=== PATIENT | male | born 1965 | race Caucasian/White ===

== ENCOUNTER → 2018-05-04 16:05 | Outpatient (CLI) | payer OTHER, SELFPAY ==
[2018-05-07 06:08] LABS: QNTFERON TB Mitogen Value > 10.00 IU/mL (.); QNTFERON TB Nil Value 0.06 IU/mL (.); QNTFERON TB1+ Ag Value 0.06 IU/mL (.); QNTFERON TB2+ Ag Value 0.05 IU/mL (.)
[2018-05-07 12:36] LABS: QNTIFERON TB Positive Criteria Negative (Negative)
--- OUTSIDE RECORDS SUMMARY | 2018-06-20 23:33 | XMS RPT_ITS ---
:1965 Author Organization OHIP Care Team Providers Name Role Phone FRED TURNER MD Attending Unavailable FRED TURNER MD Primary Care Unavailable FRED TURNER MD Attending Unavailable FRED TURNER MD Primary Care Unavailable FRED TURNER MD Attending Unavailable FRED TURNER MD Primary Care Unavailable FRED TURNER MD Attending Unavailable FRED TURNER MD Primary Care Unavailable Chel Villalta Attending Unavailable Chel Villalta Referring Unavailable ITZ DE LEON Primary Care Unavailable PROBLEMS PROBLEMS DATE TYPE CONDITION / CODE ATTENDING STATUS SOURCE 04/01/2018 Admitting Other specified FRED TURNER MD [facility] Diagnosis abnormal findings of [facility] blood chemistry / Repository R79.89(ICD-10) 09/24/2017 Admitting Mixed hyperlipidemia FRED TURNER MD Active [facility] Diagnosis / E78.2(ICD-10) K [facility] Repository 06/26/2017 Admitting Abnormal results of FRED TURNER MD Active [facility] Diagnosis liver function [facility] studies / Repository R94.5(ICD-10) 06/26/2017 Admitting Encounter for FRED TURNER MD Active [facility] Diagnosis screening for [facility] malignant neoplasm Repository of prostate / Z12.5(ICD-10) PROCEDURES PROCEDURES No Procedure Records FoundRESULTS RESULTS CBC Collected: 05/11/2018 Status: F Source: [facility] 8:59 AM [facility] [place] REPOSITORY TYPE CODE TESTS RESULT OUT OF REFERENCE UNITS RANGE LAB WBC(LOINC) 4.50-10.80 10 3/mcL WBC 6.80 LAB RBCCT(LOINC 4.50-6.00 10 6/mcL ) RBC 4.53 LAB HGB(LOINC) 13.0-17.5 G/dL Hgb 15.3 LAB HCT(LOINC) 40.0-52.0 % Hct 45.2 LAB MCV(LOINC) 81.0-100.0 fL MCV 99.7 LAB MCH(LOINC) 27.0-33.0 pg High MCH 33.8 LAB MCHC(LOINC) 32.0-36.0 G/dL MCHC 33.9 LAB RDW(LOINC) 11.5-15.5 % RDW 13.3 LAB PLT(LOINC) 150-450 10 3/mcL Platelet 180 LAB MPV(LOINC) 6.4-10.5 fL MPV 8.9 Performed By: #### CBC, ADIFF, ANEU, TSH, T3, T4, TUP, A1C, FTESTO #### [place] [address] .AUTO DIFF Collected: 05/11/2018 Status: F Source: [facility] 8:59 AM [facility] [place] REPOSITORY TYPE CODE TESTS RESULT OUT OF REFERENCE UNITS RANGE LAB AZEB(LOINC) 50.0-75.0 % Neutrophil % 52.3 LAB LYM(LOINC) 20.0-40.0 % Lymphocyte % 35.6 LAB MON(LOINC) 2.0-13.0 % Monocyte % 8.0 LAB EO(LOINC) 0.0-6.0 % Eosinophil % 2.9 LAB BAS(LOINC) 0.0-2.5 % Basophil % 1.2 LAB ABLYM(LOIN 0.90-4.32 10 3/mcL C) Lymphocyte, 2.40 Absolute LAB WILL(LOINC 0.09-1.40 10 3/mcL ) Monocyte, 0.50 Absolute LAB AEOS(LOINC 0.00-0.65 10 3/mcL ) Eosinophil, 0.20 Absolute LAB ABAS(LOINC 0.00-0.27 10 3/mcL ) Basophil, 0.10 Absolute Performed By: #### CBC, ADIFF, ANEU, TSH, T3, T4, TUP, A1C, FTESTO #### [place] [id number] .NEUABS Collected: 05/11/2018 Status: F Source: [facility] 8:59 AM [facility] [place] REPOSITORY TYPE CODE TESTS RESULT OUT OF REFERENCE UNITS RANGE LAB ANEU(LOINC) 2.25-8.10 10 3/mcL Neutrophil, 3.50 Absolute Performed By: #### CBC, ADIFF, ANEU, TSH, T3, T4, TUP, A1C, FTESTO #### [place] [address] TSH Collected: 05/11/2018 Status: F Source: [facility] 8:59 AM [facility] [place] REPOSITORY TYPE CODE TESTS RESULT OUT OF RANGE REFERENCE UNITS LAB TSH(LOINC) 0.360-3.740 mcIU/mL TSH 3.620 Result Comment: Please note as of 12/06/16 new pediatric reference intervals were added for this test. Performed By: #### CBC, ADIFF, ANEU, TSH, T3, T4, TUP, A1C, FTESTO #### [place] [address] T3 Collected: 05/11/2018 Status: F Source: [facility] 8:59 AM [facility] [place] REPOSITORY TYPE CODE TESTS RESULT OUT OF RANGE REFERENCE UNITS LAB T3(LOINC) 60-181 ng/dL Total T3 106 Result Comment: Please note ? as of 12/06/16 new pediatric reference intervals were added for this test. Performed By: #### CBC, ADIFF, ANEU, TSH, T3, T4, TUP, A1C, FTESTO #### [place] [address] T4 Collected: 05/11/2018 Status: F Source: [facility] 8:59 AM [facility] [place] REPOSITORY TYPE CODE TESTS RESULT OUT OF RANGE REFERENCE UNITS LAB T4(LOINC) 4.7-11.4 mcg/dL T4 8.5 Result Comment: Please note as of 12/06/16 new pediatric reference intervals were added for this test. Performed By: #### CBC, ADIFF, ANEU, TSH, T3, T4, TUP, A1C, FTESTO #### [place] [address] TUP Collected: 05/11/2018 Status: F Source: [facility] 8:59 AM [facility] [place] REPOSITORY TYPE CODE TESTS RESULT OUT OF REFERENCE UNITS RANGE LAB TUP(LOINC) 0.76-1.23 ratio T Uptake 0.90 Performed By: #### CBC, ADIFF, ANEU, TSH, T3, T4, TUP, A1C, FTESTO #### [place] [address] A1C Collected: 05/11/2018 Status: F [facility] 8:59 AM [facility] [place] REPOSITORY TYPE CODE TESTS RESULT OUT OF RANGE REFERENCE UNITS LAB A1C(LOINC) 4.0-6.0 % Hgb A1c 6.0 Performed By: #### CBC, ADIFF, ANEU, TSH, T3, T4, TUP, A1C, FTESTO #### [address] [address] FTESTO Collected: 05/11/2018 Status: F Source: [facility] 8:59 AM [facility] [place] REPOSITORY TYPE CODE TESTS RESULT OUT OF REFERENCE UNITS RANGE LAB TESTO(LOIN 193-824 ng/dL C) Testosterone 476 Result Comment: Disregard reference range. Test performed by: [facility], [place], [place] Reference value is 240 to 950 ng/dL. Testing performed by Liquid Chromat[facility] [employer]rom[facility]. Performed By: [place] [address] Blister Pack Operator: Pascual Velasco#: [id number] Phone#: LAB FREE(LOINC) Free Testosterone Percent free % calculation not provided by [employer]. Result Comment: Performed By: [place] [address] Blister Pack Operator: Charlene Hargrove M.D. CLIA#: [id number] Phone#: LAB FTES(LOINC) 41.7-180.2 pg/mL Free Low Testosterone 6.2 Result Comment: Disregard reference range. Test performed by: [facility], [place], [place] Reference value is 4.06 to 15.6 ng/dL. Testing performed by [facility]. Performed By: [facility] [place] [address] Blister Pack Operator: Charlene Hargrove M.D. CLIA#: [id number] Phone#: Performed By: #### CBC, ADIFF, ANEU, TSH, T3, T4, TUP, A1C, FTESTO #### [place] [address] QUANTIFERON TB-GOLD+ Collected: 05/04/2018 Status: F Source: [facility] 4:19 PM [facility] REPOSITORY TYPE CODE TESTS RESULT OUT OF RANGE REFERENCE UNITS LAB L3400.8025 . Normal QFT TB Comment GOLD Result Comment: The QuantiFERON-TB Gold Plus result is determined by subtracting the Nil value from either TB antigen (Ag) tube. The mitogen tube serves as a control for the test. LAB L3400.8035 . IU/mL Normal QFT TB1+ AG 0.06 [facility] LAB L3400.8045 . IU/mL Normal QFT TB2+ AG 0.05 [facility] LAB L3400.8055 . IU/mL Normal QFT NIL VALUE 0.06 LAB L3400.8065 . IU/mL Normal QFT MITOGEN > 10.00 [facility] LAB L3400.8075 Negative Normal QFT TB POS Negative CRIT Result Comment: The specimen received for QuantiFERON testing was incubated by the ordering institution. Specific procedures outlined in our Directory of Services and in the package insert for the QuantiFERON Gold (In Tube) test must be followed to enable for proper stimulation of cells for the production of interferon gamma. Performed at: [address] [id number] Blister Pack Operator: German Lopez PhD, Phone: [phone] Performed By: #### L3400.8000 #### [facility] (refer to report for specific site) refer to report for address and phone number CMP Collected: 04/01/2018 Status: F Source: [facility] 7:32 AM [facility] [place] REPOSITORY TYPE CODE TESTS RESULT OUT OF REFERENCE UNITS RANGE LAB GLU(LOINC) 70-110 mg/dL Glucose High Level 132 LAB NA(LOINC) 136-145 mEq/L Sodium Level 140 LAB K(LOINC) 3.5-5.0 mEq/L Potassium Level 4.2 LAB CL(LOINC) 98-110 mEq/L Chloride 106 LAB CO2(LOINC) 22-32 mEq/L CO2 26 LAB EBAL(LOINC 4.0-15.0 mEq/L ) Electrolyte Balance 8.0 LAB BUN(LOINC) 8.0-22.0 mg/dL BUN 11.0 LAB CRE(LOINC) 0.60-1.40 mg/dL Creatinine Lvl (s) 0.75 LAB BC(LOINC) 10.0-22.0 ratio BUN/Creatinine 14.7 Ratio LAB CA(LOINC) 8.4-10.1 mg/dL Calcium Lvl 9.2 LAB PROT(LOINC 6.0-8.5 G/dL ) Total Protein 7.9 LAB ALB(LOINC) 3.2-4.8 G/dL Albumin Level 4.1 LAB GLB(LOINC) 1.5-3.8 G/dL Globulin 3.8 LAB AG(LOINC) 0.9-1.6 ratio A/G Ratio 1.1 LAB BILT(LOINC 0.2-1.2 mg/dL ) Bili Total 0.8 LAB AP(LOINC) 38-126 U/L Alk Phos 104 LAB AST(LOINC) 8-34 U/L AST/SGOT High 74 LAB ALT(LOINC) 12-55 U/L ALT/SGPT High 80 Performed By: #### CMP, GFR, LIPID #### [place] [address] .GFR Collected: 04/01/2018 Status: F Source: [facility] 7:32 AM [facility] [place] REPOSITORY TYPE CODE TESTS RESULT OUT OF REFERENCE UNITS RANGE LAB GFRAA(LOINC ml/min/1.73 ) sqm GFR >60 Marshallese Result Comment: GFR Population mean for , Non- Americans Ages 20-29 = 116 mL/min/1.73 sq.m. Ages 30-39 = 107 mL/min/1.73 sq.m. Ages 40-49 = 99 mL/min/1.73 sq.m. Ages 50-59 = 93 mL/min/1.73 sq.m. Ages 60-69 = 85 mL/min/1.73 sq.m. Ages 70+ = 75 mL/min/1.73 sq.m. Chronic Kidney Disease: Less than 60 mL/min/1.73 square meters End Stage Renal Disease: Less than 15 mL/min/1.73 square meters LAB GFRNO(LOINC) ml/min/1.73sqm GFR Non- >60 Result Comment: GFR Population mean for , Non- Americans Ages 20-29 = 116 mL/min/1.73 sq.m. Ages 30-39 = 107 mL/min/1.73 sq.m. Ages 40-49 = 99 mL/min/1.73 sq.m. Ages 50-59 = 93 mL/min/1.73 sq.m. Ages 60-69 = 85 mL/min/1.73 sq.m. Ages 70+ = 75 mL/min/1.73 sq.m. Chronic Kidney Disease: Less than 60 mL/min/1.73 square meters End Stage Renal Disease: Less than 15 mL/min/1.73 square meters Performed By: #### CMP, GFR, LIPID #### [place] [address] LIPID Collected: 04/01/2018 Status: F Source: [facility] 7:32 AM [facility] REPOSITORY TYPE CODE TESTS RESULT OUT OF REFERENCE UNITS RANGE LAB CHOL(LOINC 50-199 mg/dL ) Cholesterol High 219 Result Comment: Cholesterol Reference Interval: Less than 200 Desirable 200-239 Borderline high risk 240 and above High risk LAB TRIG(LOINC) 3-149 mg/dL Triglycerides 92 Result Comment: Triglyceride Reference Interval: Less than 150 Normal 150-199 Borderline high risk 200-499 High risk 500 or higher Very high risk LAB HD(LOINC) 40-59 mg/dL HDL Cholesterol 52 Result Comment: HDL Reference Interval: Less than 40 Low - high risk 60 or above Optimal/lowers risk LAB LDL(LOINC) 0-129 mg/dL LDL High Cholesterol 149 Result Comment: LDL is a calculated result and requires a 12-hr fast. LDL Reference Interval: Less than 100 Optimal 100-129 Near or above optimal 130-159 Borderline high risk 160-189 High risk 190 and above Very high risk Performed By: #### CMP, GFR, LIPID #### [address] [address] CMP Collected: 09/24/2017 Status: F Source: [facility] 8:24 AM [facility] REPOSITORY TYPE CODE TESTS RESULT OUT OF REFERENCE UNITS RANGE LAB GLU(LOINC) 70-110 mg/dL Glucose Level 110 LAB NA(LOINC) 136-145 mEq/L Sodium Level 142 LAB K(LOINC) 3.5-5.0 mEq/L Potassium Level 4.3 LAB CL(LOINC) 98-110 mEq/L Chloride 106 LAB CO2(LOINC) 22-32 mEq/L CO2 27 LAB EBAL(LOINC 4.0-15.0 mEq/L ) Electrolyte Balance 9.0 LAB BUN(LOINC) 8.0-22.0 mg/dL BUN 10.0 LAB CRE(LOINC) 0.60-1.40 mg/dL Creatinine Lvl (s) 0.69 LAB BC(LOINC) 10.0-22.0 ratio BUN/Creatinine 14.5 Ratio LAB CA(LOINC) 8.4-10.1 mg/dL Calcium Lvl 9.4 LAB PROT(LOINC 6.0-8.5 G/dL ) Total Protein 8.2 LAB ALB(LOINC) 3.2-4.8 G/dL Albumin Level 4.8 LAB GLB(LOINC) 1.5-3.8 G/dL Globulin 3.4 LAB AG(LOINC) 0.9-1.6 ratio A/G Ratio 1.4 LAB BILT(LOINC 0.2-1.2 mg/dL ) Bili Total 0.4 LAB AP(LOINC) 38-126 U/L Alk Phos 109 LAB AST(LOINC) 8-34 U/L AST/SGOT High 47 LAB ALT(LOINC) 12-55 U/L ALT/SGPT High 69 Performed By: #### CMP, GFR, LIPID #### [address] [address] .GFR Collected: 09/24/2017 Status: F Source: [facility] 8:24 AM [facility] [place] REPOSITORY TYPE CODE TESTS RESULT OUT OF REFERENCE UNITS RANGE LAB GFRAA(LOINC ml/min/1.73 ) sqm GFR >60 Marshallese Result Comment: GFR Population mean for , Non- Americans Ages 20-29 = 116 mL/min/1.73 sq.m. Ages 30-39 = 107 mL/min/1.73 sq.m. Ages 40-49 = 99 mL/min/1.73 sq.m. Ages 50-59 = 93 mL/min/1.73 sq.m. Ages 60-69 = 85 mL/min/1.73 sq.m. Ages 70+ = 75 mL/min/1.73 sq.m. Chronic Kidney Disease: Less than 60 mL/min/1.73 square meters End Stage Renal Disease: Less than 15 mL/min/1.73 square meters LAB GFRNO(LOINC) ml/min/1.73sqm GFR Non- >60 Result Comment: GFR Population mean for , Non- Americans Ages 20-29 = 116 mL/min/1.73 sq.m. Ages 30-39 = 107 mL/min/1.73 sq.m. Ages 40-49 = 99 mL/min/1.73 sq.m. Ages 50-59 = 93 mL/min/1.73 sq.m. Ages 60-69 = 85 mL/min/1.73 sq.m. Ages 70+ = 75 mL/min/1.73 sq.m. Chronic Kidney Disease: Less than 60 mL/min/1.73 square meters End Stage Renal Disease: Less than 15 mL/min/1.73 square meters Performed By: #### CMP, GFR, LIPID #### [address] [id number] LIPID Collected: 09/24/2017 Status: F Source: [facility] 8:24 AM [facility] [place] REPOSITORY TYPE CODE TESTS RESULT OUT OF REFERENCE UNITS RANGE LAB CHOL(LOINC 50-199 mg/dL ) Cholesterol High 204 Result Comment: Cholesterol Reference Interval: Less than 200 Desirable 200-239 Borderline high risk 240 and above High risk LAB TRIG(LOINC) 3-149 mg/dL Triglycerides High 307 Result Comment: Triglyceride Reference Interval: Less than 150 Normal 150-199 Borderline high risk 200-499 High risk 500 or higher Very high risk LAB HD(LOINC) 40-59 mg/dL HDL Cholesterol 42 Result Comment: HDL Reference Interval: Less than 40 Low - high risk 60 or above Optimal/lowers risk LAB LDL(LOINC) 0-129 mg/dL LDL Cholesterol 101 Result Comment: LDL is a calculated result and requires a 12-hr fast. LDL Reference Interval: Less than 100 Optimal 100-129 Near or above optimal 130-159 Borderline high risk 160-189 High risk 190 and above Very high risk Performed By: #### CMP, GFR, LIPID #### [address] [address] PSA Collected: 06/26/2017 Status: F Source: [facility] 10:20 AM [facility] [place] REPOSITORY TYPE CODE TESTS RESULT OUT OF REFERENCE UNITS RANGE LAB PSA(LOINC) 0.02-4.00 ng/mL Prostate 1.20 Specific Antigen Performed By: #### PSA, CMP, GFR, LIPID, CBC, ADIFF, ANEU #### [place] [address] CMP Collected: 06/26/2017 Status: F Source: [facility] 10:20 AM [facility] [place] REPOSITORY TYPE CODE TESTS RESULT OUT OF REFERENCE UNITS RANGE LAB GLU(LOINC) 70-110 mg/dL Glucose Level 96 LAB NA(LOINC) 136-145 mEq/L Sodium Level 141 LAB K(LOINC) 3.5-5.0 mEq/L Potassium Level 4.5 LAB CL(LOINC) 98-110 mEq/L Chloride 103 LAB CO2(LOINC) 22-32 mEq/L CO2 29 LAB EBAL(LOINC 4.0-15.0 mEq/L ) Electrolyte Balance 9.0 LAB BUN(LOINC) 8.0-22.0 mg/dL BUN 10.0 LAB CRE(LOINC) 0.60-1.40 mg/dL Creatinine Lvl (s) 0.72 LAB BC(LOINC) 10.0-22.0 ratio BUN/Creatinine 13.9 Ratio LAB CA(LOINC) 8.4-10.1 mg/dL Calcium Lvl 9.1 LAB PROT(LOINC 6.0-8.5 G/dL ) Total Protein 8.0 LAB ALB(LOINC) 3.2-4.8 G/dL Albumin Level 4.2 LAB GLB(LOINC) 1.5-3.8 G/dL Globulin 3.8 LAB AG(LOINC) 0.9-1.6 ratio A/G Ratio 1.1 LAB BILT(LOINC 0.2-1.2 mg/dL ) Bili Total 0.4 LAB AP(LOINC) 38-126 U/L Alk Phos 98 LAB AST(LOINC) 8-34 U/L AST/SGOT High 52 LAB ALT(LOINC) 12-55 U/L ALT/SGPT High 66 Performed By: #### PSA, CMP, GFR, LIPID, CBC, ADIFF, ANEU #### [place] [address] .GFR Collected: 06/26/2017 Status: F Source: [facility] 10:20 AM [facility] REPOSITORY TYPE CODE TESTS RESULT OUT OF REFERENCE UNITS RANGE LAB GFRAA(LOINC ml/min/1.73 ) sqm GFR >60 Marshallese Result Comment: GFR Population mean for , Non- Americans Ages 20-29 = 116 mL/min/1.73 sq.m. Ages 30-39 = 107 mL/min/1.73 sq.m. Ages 40-49 = 99 mL/min/1.73 sq.m. Ages 50-59 = 93 mL/min/1.73 sq.m. Ages 60-69 = 85 mL/min/1.73 sq.m. Ages 70+ = 75 mL/min/1.73 sq.m. Chronic Kidney Disease: Less than 60 mL/min/1.73 square meters End Stage Renal Disease: Less than 15 mL/min/1.73 square meters LAB GFRNO(LOINC) ml/min/1.73sqm GFR Non- >60 Result Comment: GFR Population mean for , Non- Americans Ages 20-29 = 116 mL/min/1.73 sq.m. Ages 30-39 = 107 mL/min/1.73 sq.m. Ages 40-49 = 99 mL/min/1.73 sq.m. Ages 50-59 = 93 mL/min/1.73 sq.m. Ages 60-69 = 85 mL/min/1.73 sq.m. Ages 70+ = 75 mL/min/1.73 sq.m. Chronic Kidney Disease: Less than 60 mL/min/1.73 square meters End Stage Renal Disease: Less than 15 mL/min/1.73 square meters Performed By: #### PSA, CMP, GFR, LIPID, CBC, ADIFF, ANEU #### [address] [address] LIPID Collected: 06/26/2017 Status: F Source: [facility] 10:20 AM [facility] [place] REPOSITORY TYPE CODE TESTS RESULT OUT OF REFERENCE UNITS RANGE LAB CHOL(LOINC 50-199 mg/dL ) Cholesterol High 218 Result Comment: Cholesterol Reference Interval: Less than 200 Desirable 200-239 Borderline high risk 240 and above High risk LAB TRIG(LOINC) 3-149 mg/dL Triglycerides High 171 Result Comment: Triglyceride Reference Interval: Less than 150 Normal 150-199 Borderline high risk 200-499 High risk 500 or higher Very high risk LAB HD(LOINC) 40-59 mg/dL HDL Cholesterol 55 Result Comment: HDL Reference Interval: Less than 40 Low - high risk 60 or above Optimal/lowers risk LAB LDL(LOINC) 0-129 mg/dL LDL Cholesterol 129 Result Comment: LDL is a calculated result and requires a 12-hr fast. LDL Reference Interval: Less than 100 Optimal 100-129 Near or above optimal 130-159 Borderline high risk 160-189 High risk 190 and above Very high risk Performed By: #### PSA, CMP, GFR, LIPID, CBC, ADIFF, ANEU #### [address] [address] CBC Collected: 06/26/2017 Status: F [facility] 10:20 AM [facility] [place] REPOSITORY TYPE CODE TESTS RESULT OUT OF REFERENCE UNITS RANGE LAB WBC(LOINC) 4.50-10.80 10 3/mcL WBC 7.30 LAB RBCCT(LOINC 4.50-6.00 10 6/mcL ) RBC 4.53 LAB HGB(LOINC) 13.0-17.5 G/dL Hgb 15.4 LAB HCT(LOINC) 40.0-52.0 % Hct 45.0 LAB MCV(LOINC) 81.0-100.0 fL MCV 99.5 LAB MCH(LOINC) 27.0-33.0 pg High MCH 34.1 LAB MCHC(LOINC) 32.0-36.0 G/dL MCHC 34.3 LAB RDW(LOINC) 11.5-15.5 % RDW 12.7 LAB PLT(LOINC) 150-450 10 3/mcL Platelet 175 LAB MPV(LOINC) 6.4-10.5 fL MPV 10.1 Performed By: #### PSA, CMP, GFR, LIPID, CBC, ADIFF, ANEU #### [address] [address] .AUTO DIFF Collected: 06/26/2017 Status: F Source: [facility] 10:20 AM [facility] [place] REPOSITORY TYPE CODE TESTS RESULT OUT OF REFERENCE UNITS RANGE LAB AZEB(LOINC) 50.0-75.0 % Neutrophil % 57.1 LAB LYM(LOINC) 20.0-40.0 % Lymphocyte % 31.7 LAB MON(LOINC) 2.0-13.0 % Monocyte % 7.1 LAB EO(LOINC) 0.0-6.0 % Eosinophil % 2.9 LAB BAS(LOINC) 0.0-2.5 % Basophil % 1.2 LAB ABLYM(LOIN 0.90-4.32 10 3/mcL C) Lymphocyte, 2.30 Absolute LAB WILL(LOINC 0.09-1.40 10 3/mcL ) Monocyte, 0.50 Absolute LAB AEOS(LOINC 0.00-0.65 10 3/mcL ) Eosinophil, 0.20 Absolute LAB ABAS(LOINC 0.00-0.27 10 3/mcL ) Basophil, 0.10 Absolute Performed By: #### PSA, CMP, GFR, LIPID, CBC, ADIFF, ANEU #### [address] [address] .NEUABS Collected: 06/26/2017 Status: F Source: [facility] 10:20 AM [facility] [place] REPOSITORY TYPE CODE TESTS RESULT OUT OF REFERENCE UNITS RANGE LAB ANEU(LOINC) 2.25-8.10 10 3/mcL Neutrophil, 4.20 Absolute Performed By: #### PSA, CMP, GFR, LIPID, CBC, ADIFF, ANEU #### [address] [address] ALLERGIES ALLERGIES No Allergies Records FoundENCOUNTERS ENCOUNTERS ADMIT/DISCHARGE ACCOUNT NUMBER ADMITTING ENCOUNTER LOCATION SOURCE CLASS 05/11/2018/05/11/20 [id number] Ambulatory ABuilding:[place] [facility] Repository 05/04/2018 [id number] Ambulatory [place] ding:MTLAB Repository 04/01/2018 [id number] Ambulatory ABuilding:DM [facility] Repository 09/24/2017/09/29/19 [id number] Ambulatory [facility] Repository 06/26/2017/06/30/19 [id number] [facility] Repository PAYERS PAYERS ENCOUNTER GUARANTOR PAYER SUBSCRIBER SOURCE 05/11/2018 JONNY Hurley Primary JONNY Hurley [facility] ANDERSONDOB: Insurance:AULTCARE ANDERSONDOB: [facility] [id number] Number: [id number] Repository [facility] [id number] 0 [place], [place] Date:2018-05-11 - [place] [address]~BLAIRE [id number]: [phone] .Nimbula Name:BAKERY SALES CLERK [phone] Tel: [phone], [place] () [address]WP: (RD) (HP) [phone] (IK) 05/04/2018 JONNY Hurley Primary JONNY Bethea [id number] Insurance:AULTCAREPol ANDERSONDOB: [facility] icy [place]: [id number] [id number] Repository [address]Bok: [phone]) Date:[phone] (UY) [address], [place] [address]OM: 05/04/2018 Secondary NOT GIVENUNK [place] Insurance:SELF PAY [facility] Number: Effective Repository Date:2018-05-04 04/01/2018 JONNY Hurley Primary JONNY Hurley [facility] ANDERSONDOB: Insurance:AULTCARE ANDERSONDOB: [facility] R92Iygwzt Number: [id number] Repository [facility] [address] [id number] 0 [facility], [place] Date:2018-04-01 [place] [address]~BRIANAND [id number]: [phone] [email or web address] Name:CPO Childress [phone] Tel: [phone], [place] (HP) [address]WP: (WP) (HP) [phone] (WP) 09/24/2017 JONNY Hurley [facility]:AULTCARE ANDERSONDOB: [facility] [id number] Number: [id number] Repository [facility] [id number] 0 [facility], [place] Date:2017-09-24 [place] [address]~BRIANAND [id number] [address]Hjp: [phone] .Nimbula Name:CPO Childress [phone] Tel: [phone], [place] (HP) [address]WP: (WP) (HP) [phone] (WP) 06/26/2017 JONNY Hurley [facility]NY [facility] Insurance:AULTCARE ANDERSONDOB: [facility] X80Nghinw Number: [id number] Repository [facility] [id number] 0 [facility], [place] Date:2017-06-26 [place] [address]~BRIANAND [id number]: [phone] [email or web address] Name:CPO Childress [phone] Tel: [phone], [place] () [address]GA: (WP) (HP) [phone] (WP)
== END ==
PROVIDERS: Referring Provider Dermatology Pediatric Dermatology; Visit Provider Dermatology Pediatric Dermatology
DX: L40.0 Psoriasis vulgaris (principal)
CPT/HCPCS: 36415; 86480